=== PATIENT | female | born 1990 | race Caucasian/White ===

== ENCOUNTER → 2017-08-31 | Outpatient (CLI) | payer OTHER ==
[~2017-08-31] MED LIST: BUPR150T73 PO; FLUO20CA19 PO; LORA0.5T PO; TOPI50TA8 PO
[2017-08-31 16:33] LABS: HEMATOCRIT 41.3 % (34.6-47.8); HEMOGLOBIN 13.7 g/dL (11.7-16.4); WHITE BLOOD COUNT 6.8 x10^3/uL (3.4-10)
== END | disposition home or self-care (01) ==
LOC: STAR 15:33
PROVIDERS: ATTEND Obstetrics & Gynecology Female Pelvic Medicine and Reconstructive Surgery
DX: Z01.818 Encounter for other preprocedural examination (principal)
CPT/HCPCS: 36415; 84703; 85025

== ENCOUNTER 2017-09-07 11:39 | Day surgery (SDC) | payer OTHER ==
[2017-08-31 13:30] VITALS: BP 119/92
[~2017-09-07] VITALS: Ht 149.9 cm; Wt 129.0 kg
[2017-09-07] MEDS ORDERED: LACTATED RINGERS 1,000 ML IV SCH ×2 (12:26→15:29)
[2017-09-07 12:29] VITALS: BP 119/92
[2017-09-07] MEDS ORDERED: LIDOCAINE 1%, 2ML SQ PRN (12:30)
[2017-09-07 12:31] LABS: HCG UR LOT HCG7030192
[2017-09-07] MEDS ORDERED: LIDOCAINE 1%, 2ML ONE (12:35)
[2017-09-07 12:42] LABS: HCG UR OBC PASS
[2017-09-07] MEDS ORDERED: MIDAZOLAM 1 MG/ML, 2ML ONE ×2 (12:46→13:38)
[2017-09-07] MEDS ORDERED: PROPOFOL 10 MG/ML, 20ML ONE ×2 (12:46→13:38)
[2017-09-07] MEDS ORDERED: NEOSTIGMINE 1 MG/ML, 10ML ONE ×2 (12:46→13:38)
[2017-09-07] MEDS ORDERED: GLYCOPYRROLATE 0.2MG/1ML, 5ML ONE ×2 (12:46→13:38)
[2017-09-07] MEDS ORDERED: ROCURONIUM 10 MG/ML,10ML ONE ×2 (12:46→13:38)
[2017-09-07] MEDS ORDERED: FENTANYL PF 250 MCG/5ML ONE ×2 (12:46→13:38)
[2017-09-07] MEDS ORDERED: SUCCINYLCHOLINE 20 MG/ML, 10ML ONE ×2 (12:46→13:38)
[2017-09-07] MEDS ORDERED: DEXAMETHASONE 4 MG/ML, 1ML ONE ×2 (12:46→13:38)
[2017-09-07] MEDS ORDERED: CEFAZOLIN 1,000 MG ONE ×2 (12:46→13:38)
[2017-09-07] MEDS ORDERED: ONDANSETRON 2MG/ML, 2ML ONE ×2 (12:46→13:38)
[2017-09-07] MEDS ORDERED: LIDOCAINE GEL 2%, 5ML ONE (12:47)
[2017-09-07] MEDS ORDERED: LIDOCAINE-MPF 2% ,5ML ONE ×2 (12:47→14:37)
[2017-09-07] MEDS ORDERED: ALBUTEROL/IPRATROPIUM 2.5MG/0.5MG, 3 ML NPPB PRN (13:00)
[2017-09-07] MEDS ORDERED: hydrALAzine 20 MG/ML, 1ML IV PRN (13:00)
[2017-09-07] MEDS ORDERED: OXYcodone 5 MG/5 ML ORAL.SOL UDC PO PRN ×2 (13:00→15:30)
[2017-09-07] MEDS ORDERED: ACETAMINOPHEN 325 MG TABLET PO PRN (13:00)
[2017-09-07] MEDS ORDERED: LORazepam 2 MG/ML, 1ML IVPush PRN (13:00)
[2017-09-07] MEDS ORDERED: MEPERIDINE/PF 25MG/0.5ML IVPush PRN (13:00)
[2017-09-07] MEDS ORDERED: DIAZEPAM 5 MG/ML, 2ML IVPush PRN (13:00)
[2017-09-07] MEDS ORDERED: HYDROmorphone 1 MG/ML, 1ML IV PRN (13:00)
[2017-09-07] MEDS ORDERED: METOCLOPRAMIDE 5 MG/ML, 2ML IV PRN (13:00)
[2017-09-07] MEDS ORDERED: FENTANYL PF 100 MCG/2ML IV PRN (13:00)
[2017-09-07] MEDS ORDERED: ONDANSETRON 2MG/ML, 2ML IVPush PRN ×2 (13:00→15:30)
[2017-09-07] MEDS ORDERED: PROMETHAZINE 25 MG/ML, 1ML IV PRN (13:00)
[2017-09-07] MEDS ORDERED: LABETALOL 5MG/ML, 20ML IV PRN (13:00)
[2017-09-07] MEDS ORDERED: MIDAZOLAM 1 MG/ML, 2ML IV PRN (13:00)
[2017-09-07] MEDS ORDERED: BUPIVACAINE/PF 0.25% ONE (13:36)
[2017-09-07] MEDS ORDERED: KETOROLAC 30 MG/1 ML ONE (13:38)
[2017-09-07] MEDS ORDERED: PROMETHAZINE 25 MG SUPP PR ONE (15:30)
[2017-09-07] MEDS ORDERED: IBUPROFEN 600 MG TABLET PO SCH (16:00)
== END 2017-09-07 16:30 ==
LOC: OUT 11:39
PROVIDERS: ATTEND Obstetrics & Gynecology Female Pelvic Medicine and Reconstructive Surgery
DX: Z30.2 Encounter for sterilization (principal); D06.0 Carcinoma in situ of endocervix; N87.0 Mild cervical dysplasia; F41.9 Anxiety disorder, unspecified; F32.9 Major depressive disorder, single episode, unspecified; Z86.73 Personal history of transient ischemic attack (TIA), and cerebral infarction without residual deficits; I25.10 Atherosclerotic heart disease of native coronary artery without angina pectoris
CPT/HCPCS: 57522; 58670; 81025; 88302; 88305; J0330; J0690; J1100; J1885; J2250; J2405; J2704; J2710; J3010; J3490